=== PATIENT | female | born 2000 | race Caucasian/White ===

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

== ENCOUNTER 2022-03-22 12:36 | Emergency (ER) | payer OTHER | END 2022-03-22 14:24 | disposition home or self-care (01) | LOC: BURERS 12:36 | DX: J06.9 Acute upper respiratory infection, unspecified (principal) | CPT/HCPCS: 71045; 87081; 87430; 87804 ==